=== PATIENT | female | born 1970 | race Caucasian/White ===

== ENCOUNTER 2017-07-29 17:06 | Observation (INO) | payer BC ==
[~2017-07-29 17:06] MED LIST: ISOVUE-370 76%-LOCM 1 ML ONE
[2017-07-29 18:22] LABS: Troponin I Less than 0.010 ng/mL (< 0.028)
[2017-07-29] MEDS ORDERED: Lidocaine 2% Viscous Solution 10 ML, Aluminum & Magnesium Hydroxide 30 ML SSW PRN (20:29)
--- NOTE | 2017-07-29 21:03 | ULT ---
LEFT LOWER EXTREMITY VENOUS DOPPLER 07/29/17 COMPARISON: None. HISTORY: Left lower extremity pain and edema/swelling, assess for DVT. TECHNIQUE: Multiplanar ventura scale sonographic imaging of the venous structures of the left lower extremity obtai mindy with color flow and spectral analysis. FINDINGS: The left common femoral vein, greater saphenous vein, profunda femoral vein, femoral vein, popliteal vein, and posterior tibial vein are patent. There is normal blood flow, augmentation, and compression within the deep venous systems of the left lower extremity. No evidence for deep venous thrombosis. IMPRESSION: No evidence for deep venous thrombosis of the left lower extremity. POS: [facility]
[2017-07-29 21:05] LABS: Troponin I Less than 0.010 ng/mL (< 0.028)
[2017-07-29] MEDS ORDERED: Dextrose 50% Abboject 50 ML SYRINGE SLOW IVP PRN (21:10)
[2017-07-29] MEDS ORDERED: Acetaminophen 325 MG TAB PO PRN (21:10)
[2017-07-29] MEDS ORDERED: Dextrose 5% in Water 1,000 ML IV PRN (21:10)
[2017-07-29] MEDS ORDERED: Nitroglycerin 0.4 MG TAB (25 Tab Bottle) PO PRN (21:10)
[2017-07-29] MEDS ORDERED: Ondansetron ODT 4 MG TAB PO PRN (21:10)
[2017-07-29] MEDS ORDERED: HumaLOG 300 UNITS/3 ML VIAL SC PRN ×2 (21:10)
[2017-07-29 21:41] LABS: Phosphorus 3.3 mg/dL (2.3-4.7)
[2017-07-29] MEDS: Docusate 100 MG CAP PO SCH (21:49)
[2017-07-29 21:55] VITALS: BMI 52.9
--- NOTE | 2017-07-29 23:10 | CT ---
CT ANGIOGRAM CHEST 07/29/17 COMPARISON: None. HISTORY: Rule out PE. TECHNIQUE: Serial axial CT imaging at 2.5 mm intervals from thoracic inlet through upper abdomen with IV contra st. Coronal and sagittal 3D reformatted imaging obtained. FINDINGS: There is a lobulated configuration of the thyroid gland with numerous underlying thyroid nodules, sean e of which demonstrate rim calcification, incompletely assessed on this exam. There is no axillary, o r hilar adenopathy. There is a mildly prominent precarinal node measuring in the 1.5 cm range, etiolo gy uncertain. Imaged upper abdomen appears grossly unremarkable. Secondary to timing of the contrast bolus, opacification of the distal pulmonary arterial vasculature is somewhat limited. The main pulmonary arterial trunk and bilateral main pulmonary arteries appear unremarkable. No evidence for a central pulmonary embolism is seen. Segmental and subsegmental pulmon ruthie arteries are somewhat suboptimally assessed. There is no pneumothorax, pleural fluid or fluid within the mediastinum or pericardium. Right upper l obe and right lower lobe granulomata noted as well as left lower lobe granulomata. No acute osseous a bnormality. Multilevel osteophyte formation of the thoracic spine noted. IMPRESSION: 1. No evidence for central pulmonary embolism. Please see above discussion. 2. Lobulated nodular thyroid gland. Recommend followup thyroid ultrasound. 3. Mildly enlarged nonspecific precarinal lymph node. POS: [facility]
[2017-07-30 04:11] LABS: Cardiac Risk 5.3 (Less than 4.5)
[2017-07-30] MEDS ORDERED: hydrALAZINE 20 MG/ML VIAL SLOW IVP PRN (04:44)
--- NOTE | 2017-07-30 06:54 | PDOC.FM ---
- Subjective Subjective: Patient doing well this AM. No significant overnight events. Patient denies any further chest pain or shortness of breath. Patient endorses TRAN this morning that she attributes to HANNAH that has yet to be diagnosed. Had discussion with patient regarding need for outpatient follow up on HANNAH and thyroid nodules. She was in understanding of the necessity for follow up with PCP. - Objective MAR Reviewed: Yes Vital Signs & Weight: Vital Signs (12 hours) Temp Pulse Resp BP Pulse Ox 07/30/17 03:46 97.8 F 63 18 136/62 97 07/29/17 22:37 98.6 F 68 18 07/29/17 21:10 96 07/29/17 20:42 98.6 F 68 18 131/60 96 Weight Weight 172.365 kg I&O: 07/28/17 07/29/17 07/30/17 06:59 06:59 06:59 Intake Total 240 Balance 240 EKG Reviewed by me: Yes Radiology Reviewed by me: Yes <Mee Perla - Last Filed: 07/30/17 07:49> - Objective Vital Signs & Weight: Vital Signs (12 hours) Temp Pulse Resp BP Pulse Ox 07/30/17 07:40 97.5 F L 76 20 148/67 H 97 07/30/17 07:35 97.8 F 63 18 07/30/17 03:46 97.8 F 63 18 136/62 97 Weight Weight 380 lb I&O: 07/29/17 07/30/17 07/31/17 06:59 06:59 06:59 Intake Total 240 Balance 240 <Duncan Park - Last Filed: 07/30/17 11:01> Phys Exam - Physical Examination Constitutional: NAD HEENT: moist MMs, sclera anicteric Neck: supple Respiratory: no wheezing, no rales, no rhonchi, clear to auscultation bilateral Cardiovascular: RRR systolic murmur Gastrointestinal: soft, non-tender, no distention, positive bowel sounds Musculoskeletal: pulses present LE edema, non-pitting Neurological: non-focal, moves all 4 limbs Psychiatric: A&O x 3 Skin: no rash, normal turgor, cap refill <2 seconds <Mee Perla - Last Filed: 07/30/17 07:49> Dx/Plan (1) Atypical chest pain Code(s): R07.89 - OTHER CHEST PAIN Status: Acute (2) Elevated d-dimer Code(s): R79.89 - OTHER SPECIFIED ABNORMAL FINDINGS OF BLOOD CHEMISTRY Status : Acute (3) HTN (hypertension) Code(s): I10 - ESSENTIAL (PRIMARY) HYPERTENSION Status: Chronic QualifierTitle: Hypertension type: essential hypertension Qualified Code( s): I10 - Essential (primary) hypertension (4) Type II diabetes mellitus Status: Chronic (5) Anxiety Code(s): F41.9 - ANXIETY DISORDER, UNSPECIFIED Status: Chronic - Plan Plan: Plan: Atypical chest pain: - Story consistent with anxiety vs. GERD - Heart score of 5.3 - Nuclear stress test to evaluate for myocardial ischemia - Phosphate and Magnesium normal - Electrolytes wnl - CE's negative x3 - TSH low-normal - Free T4 pending Elevated D-dimer: - CTA chest negative - Doppler u/s of LE negative HTN: - Continue home medications DM type II: - Held metformin and pioglitazone Thyroid nodular: - TSH low-normal - Free T4 pending - May need u/s as outpatient Dispo: D/c home today pending stress test <Mee Perla - Last Filed: 07/30/17 07:49> Attending Addendum - Attending Addendum I personally evaluated the patient and discussed the management with Dr. Perla I agree with the History, Examination, Assessment and Plan documented above with any addition or exceptions noted below. Patient will need a two day stress because of her weight. She is otherwise stable. She does need treatment for sleep apnea. <Duncan Park - Last Filed: 07/30/17 11:01>
--- NOTE | 2017-07-30 08:56 | HP-2 ---
CODE STATUS: FULL. PRIMARY CARE PHYSICIAN: Dr. Isauro Guo. ATTENDING: Dr. Park. RESIDENT: Luzmaria Gamez DO. HISTORIAN: Patient. CHIEF COMPLAINT: Back pain that radiates to the chest. HISTORY OF PRESENT ILLNESS: Patient is a 46-year-old female with past medical history of hypertension, diabetes. Past smoking history and family history of coronary artery disease who presents from [facility] for back pain that radiated to the center of her chest. The patient reports this has never happened in the past. Denies CP with exertion. Pain happened suddenly at rest and was relieved spontaneously. She reports associated bilateral arm tingling and an anxious feeling all over. She has seen Dr. Kumar in the past for a right bundle branch block that was 10 years ago. She had a stress test at that time that was normal along with an echo that was normal. She has not followed up since that time. She endorsed increased anxiety over the last couple days. The patient denies nausea, vomiting, diaphoresis at that time of this event. She was sitting at her desk at work when this happened. Denies exertional chest pain. In the ER, she was given 324 mg aspirin and an EKG was done which showed an old right bundle branch block. PAST MEDICAL HISTORY: 1. Type 2 diabetes. 2. Gastroesophageal reflux disease. 3. Hypertension. 4. Right bundle branch block, seen by Dr. Kumar. PAST SURGICAL HISTORY: Tonsillectomy. ALLERGIES: BENADRYL, LEVAQUIN, PENICILLIN, SULFA. MEDICATIONS: 1. Amlodipine 5 mg. 2. Fluticasone nasal spray 50 mcg. 3. Furosemide 20 mg p.r.n. 4. Lisinopril 40 mg daily. 5. Metformin 750 mg b.i.d. 6. Pioglitazone 50 mg. 7. Zinc. 8. Fish oil. 9. Octivite. 10. Flonase. FAMILY HISTORY: Father from [place]. Mom with more recent [place]. SOCIAL HISTORY: Prior tobacco use in the past. No alcohol or drug use. 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 REVIEW OF SYSTEMS: Twelve point review of systems performed and revealed the following: General: Denies fever, chills, does report recent weight loss that was purposeful. No change in appetite or sleep. Eyes: No vision changes or eye pain. ENT: Denies nasal congestion or rhinorrhea. Respiratory: Denies cough, congestion or shortness of breath. Cardiovascular: Reports the chest pain that is radiated from the back. Denies palpitations. Does report bilateral lower extremity edema. GI: Denies nausea, vomiting, diarrhea, constipation, abdominal pain. Genitourinary: Denies dysuria or polyuria. Skin : Denies rashes or lesions. Does report dry skin. Musculoskeletal: Denies pain. Neuro: Denies weakness or numbness. Does report the tingling sensation on her arms during this event. Psychiatric: Does report anxiety. PHYSICAL EXAMINATION: VITAL SIGNS: Blood pressure 160/70, pulse 66, respiratory rate 14, T-max 98.7, pulse ox 97% on room air. Current weight 172.37 kilograms. GENERAL: She is alert and oriented x4, no acute distress, obese. EYES: PERRLA, EOMI. NECK: Supple, possible thyromegaly, no lymphadenopathy. CARDIOVASCULAR: Regular rate and rhythm. No murmurs, gallops, or rubs. RESPIRATORY: Normal effort, no retractions, clear to auscultation bilaterally. SKIN: Warm and dry. ABDOMEN: Soft, nontender, bowel sounds present. Tender to palpation in epigastric area. EXTREMITIES: Trace bilateral lower extremity edema. No clubbing or cyanosis. MUSCULOSKELETAL: Structure within normal limits. NEUROLOGIC: No focal deficit. PSYCHIATRIC: The patient does appear very anxious. LABORATORY DATA: CBC: White blood cell count 8.1, hemoglobin 12.2, hematocrit 37.5, platelets 255. Chemistries: Sodium 140, potassium 4.4, chloride 105, CO2 of 23, BUN 14, creatinine 0.74, glucose 131, GFR 84, calcium 9.8, total protein 8.0, albumin 4.3, AST 27, ALT 31, alkaline phosphatase 78, total bilirubin 1.0, D-dimer 0.46. IMAGING: Chest x-ray showed borderline heart size, no acute findings. Vascular ultrasound was performed to the left lower extremity and was negative. CTA was done. No pulmonary embolus showed a nodular thyroid. ASSESSMENT AND PLAN: 1. Atypical chest pain, likely secondary to gastroesophageal reflux disease or anxiety. We will get fasting lipid panel, TSH, trend the troponins and a stress test in the morning. Heart score of 3. 2. Right bundle branch block, sees Dr. Kumar. Recommend echo outpatient. 3. Gastroesophageal reflux disease. We will give GI cocktail p.r.n. 4. Hypertension, controlled here. Hydralazine p.r.n. 5. Type 2 diabetes, a.c. and at bedtime, Accu-Cheks. Mild sliding scale insulin and home metformin and pioglitazone. 6. Morbid obesity. Educated on diet and exercise. 7. Prophylaxis. Lovenox. DISPOSITION AND LENGTH OF HOSPITAL STAY: 1-2 days. Symptomatic medications will be provided. History and physical exam as well as management was discussed with Dr. Park. GISELLE
[2017-07-30] MEDS ORDERED: Lisinopril 20 MG TAB PO SCH (09:00)
[2017-07-30] MEDS ORDERED: Fluticasone Propionate Nasal Spray 16 gm Bottle NASAL SCH (09:00)
[2017-07-30] MEDS ORDERED: Amlodipine 5 MG TAB PO SCH (09:00)
[2017-07-30] MEDS ORDERED: Aspirin 325 MG TAB PO SCH (09:00)
[2017-07-30] MEDS ORDERED: Enoxaparin Sodium 40 MG/0.4 ML SYRINGE SC SCH (09:00)
[2017-07-30] MEDS ORDERED: Regadenoson 0.4 MG/5 ML SYRINGE ONE (11:18)
[2017-07-30] MEDS: Docusate 100 MG CAP PO SCH (11:45)
[2017-07-30 11:52] VITALS: TEMP 97.9
--- NOTE | 2017-07-30 15:12 | NM ---
NUCLEAR MYOCARDIAL PERFUSION EVALUATION STRESS IMAGING EXAM PERFORMED: CLINICAL HISTORY: 46-year-old female with chest pain. Please reference stress EKG portion of the exam through the division of cardiology. FINDINGS: There is mild attenuation at the anterior wall and at the apex favoring breast attenuation and probab le physiologic apical thinning, respectively. Otherwise no significant perfusion defect to indicate i schemia or scar. Gated imaging reveals appropriate wall motion and contractility with calculated LVEF of 58%. IMPRESSION: 1. Probably normal myocardial perfusion evaluation. 2. No definitive evidence for ischemia or scar. 3. Normal left ventricular systolic function. POS: [facility]
[2017-07-30 17:33] VITALS: BP 154/71
[2017-07-30] MEDS ORDERED: Non-Formulary Item 1 EACH (Metformin Hcl [Metformin Hcl Er] 750 MG) PO SCH (21:00)
[2017-07-30] MEDS ORDERED: metFORMIN XR 500 MG TAB PO SCH (21:00)
--- NOTE | 2017-07-31 15:53 | DIS-2 ---
DATE OF ADMISSION: 07/29/2017 DATE OF DISCHARGE: 07/30/2017 RESIDENT: Mee Perla DO. ADMITTING ATTENDING: Duncan Park M.D. DISCHARGE ATTENDING: Duncan Park M.D. CONSULTATIONS: None. PROCEDURES: 1. Chest CT, no evidence of pulmonary embolism. There was noted to be a lobulated nodular thyroid gland and some mildly enlarged nonspecific. Her anal lymph nodes. 2. Chest x-ray borderline heart size, no acute findings. 3. Vascular ultrasound, no evidence of deep venous thrombosis of left lower extremity. 4. Echocardiogram showed ejection fraction estimated at 60% to 65%, normal diastolic function. 5. Stress test nuclear, no definitive evidence for ischemia or scar. Normal left ventricular systolic function. PRIMARY DIAGNOSIS: Atypical chest pain. SECONDARY DIAGNOSES: 1. Elevated D-dimer. 2. Hypertension. 3. Diabetes type 2 mellitus. 4. Anxiety. DISCHARGE MEDICATIONS: 1. Fluticasone propionate 2 sprays nasal daily. 2. Amlodipine 5 mg oral daily. 3. Furosemide 20 mg oral as needed. 4. Pioglitazone 50 mg oral daily. 5. Lisinopril 40 mg oral daily. 6. Metformin 750 mg oral twice daily. 7. Claritin-D 1 tab oral as needed. DISCONTINUED MEDICATIONS: None. HISTORY OF PRESENT ILLNESS AND HOSPITAL COURSE: This is a 46-year-old female with past medical history of hypertension and diabetes as well as the past smoking history and family history of coronary artery disease who presents from [facility] for back pain that radiated to the center of her chest. The patient reports that this had never happened before. She does report some increased anxiety over the last couple of days. The patient states that when this event happened she did note some bilateral arm tingling. She has seen Dr. Kumar in the past for right bundle branch block, approximately 10 years ago. She had a stress test and echocardiogram done at that time, which were normal. She has not followed up since. The patient denies nausea, vomiting or diaphoresis. She was sitting still at her desk when this all happen. She denies exertional chest pain. She was given 325 mg aspirin in the ED. An EKG was performed, which showed an old right bundle branch block. The patient was admitted to observation with telemetry for chest pain ruled out. Upon getting up to the floor, the patient's chest pain resolved completely without any intervention. A nuclear stress test was performed to rule out myocardial ischemia. It was found to be negative. Additionally, echo was performed, which showed ejection fraction of 60% to 65% without any diastolic dysfunction. Labs were done. Troponins were negative x3, cholesterol was 154, LDL 98, HDL 29. Free T4 1.32 and TSH of 0.5949. With the above, negative studies. The patient was determined stable for discharge home with close follow up with primary care physician. There were some thyroid nodules noted on CT scan. It was advised that the patient follow closely with her primary care provider to have this evaluated. Further evaluation would include a thyroid ultrasound, TSH and free T4 were performed. The values are as indicated above. Additionally, the patient needs to be evaluated for sleep apnea as an outpatient. This was all discussed with the patient at length and she was in understanding of the necessity for close followup. DISPOSITION: Stable. DISCHARGE INSTRUCTIONS: 1. Location: Home. 2. Activity: No restrictions. 3. Diet: Heart healthy and diabetic. 4. Followup: The patient is to follow up with her primary care physician in [place], [place]. She states that her current primary care provider just left. However, there are other physicians within the same office as she can establish with. She states that she will call and make an appointment within the next 7 days for followup. GISELLE
--- NOTE | 2017-09-22 20:44 | STRESS ---
Acquisition Time: 2017-07-30 09:24:40 Total Exercise Time: 00:01:00 Test Indications: CHEST PAIN Medications: Protocol: LEXISCAN Max HR: 091 BPM 52% of Pred: 172 BPM Max BP: 136/060 mmHG Max Work Load: 1.0 METS RESTING ECG: NORMAL SINUS RHYTHM AT 73 BPM WITH COMPLETE RIGHT BUNDLE BRANCH BLOCK; BIFASCICULAR BLOCK SYMPTOMS: NONE NORMAL BP RESPONSE ECTOPY: NONE ECG STRESS: NO SIGNIFICANT CHANGES INTERPRETATION: INDETERMINATE ECG/AWAIT NUCLEAR IMAGES FOR DEFINITIVE DIAGNOSIS Confirmed by DEVORAH POON M.D. ([id number] on 09/22/2017 8:43:24 PM Referred By: MD David HOOPER Confirmed By:DEVORAH POON M.D.
--- NOTE | 2017-09-24 16:52 | EKG ---
Test Reason : CP RO TRFX Blood Pressure : / mmHG Vent. Rate : 071 BPM Atrial Rate : 071 BPM P-R Int : 146 ms QRS Dur : 142 ms QT Int : 456 ms P-R-T Axes : -07 -50 -01 degrees QTc Int : 495 ms Normal sinus rhythm Right bundle branch block Left anterior fascicular block Bifascicular block Abnormal ECG No ST elevation/NM Confirmed by JAS SAHU ([id number]), movie editor JENNIE HANCOCK ([id number]) on 09/24/2017 4:51:39 PM Referred By: Confirmed By:JAS SAHU
== END 2017-07-30 18:21 | disposition home or self-care (01) ==
LOC: ERS 17:06 → 2SW 19:14
PROVIDERS: ADMIT Internal Medicine; ATTEND Internal Medicine
DX: R07.89 Other chest pain (principal); I10 Essential (primary) hypertension; R79.1 Abnormal coagulation profile; E11.9 Type 2 diabetes mellitus without complications; F41.9 Anxiety disorder, unspecified; M54.9 Dorsalgia, unspecified; K21.9 Gastro-esophageal reflux disease without esophagitis; E04.2 Nontoxic multinodular goiter; I45.10 Unspecified right bundle-branch block; E66.01 Morbid (severe) obesity due to excess calories; Z68.43 Body mass index [BMI] 50.0-59.9, adult; Z79.84 Long term (current) use of oral hypoglycemic drugs; Z79.51 Long term (current) use of inhaled steroids; Z79.899 Other long term (current) drug therapy; Z71.3 Dietary counseling and surveillance; Z88.1 Allergy status to other antibiotic agents; Z88.0 Allergy status to penicillin; Z88.2 Allergy status to sulfonamides; Z88.8 Allergy status to other drugs, medicaments and biological substances; Z90.89 Acquired absence of other organs; Z87.891 Personal history of nicotine dependence; Z82.49 Family history of ischemic heart disease and other diseases of the circulatory system
CPT/HCPCS: 36415; 36416; 71275; 78452; 80061; 83735; 84100; 84439; 84443; 85379; 93005; 93017; 93306; 94760; A9500; G0378; J1650; J2785

== ENCOUNTER 2021-03-27 | Outpatient (CLI) | payer OTHER | END 2021-03-27 14:23 | disposition home or self-care (01) | DX: Z12.31 Encounter for screening mammogram for malignant neoplasm of breast (principal); E04.2 Nontoxic multinodular goiter; Z80.3 Family history of malignant neoplasm of breast | CPT/HCPCS: 76536; 77063; 77067 ==

== ENCOUNTER 2021-06-25 10:08 | Emergency (ER) | payer OTHER ==
[2021-06-25] MEDS ORDERED: Ketorolac Tromethamine 30 MG/ML VIAL ONE (11:37)
== END 2021-06-25 12:41 | disposition home or self-care (01) ==
LOC: ERS 10:08
DX: M25.561 Pain in right knee (principal); E11.9 Type 2 diabetes mellitus without complications; I10 Essential (primary) hypertension; K21.9 Gastro-esophageal reflux disease without esophagitis; Z87.891 Personal history of nicotine dependence; Z79.899 Other long term (current) drug therapy; X50.1XXA Overexertion from prolonged static or awkward postures, initial encounter
CPT/HCPCS: 96372; J1885

== ENCOUNTER 2022-05-27 09:13 | Outpatient (CLI) | payer OTHER | END 2022-05-27 09:14 | disposition home or self-care (01) | LOC: SCSMRI 09:13 | PROVIDERS: ATTEND Nurse Practitioner Family | DX: M23.92 Unspecified internal derangement of left knee (principal); S83.242A Other tear of medial meniscus, current injury, left knee, initial encounter ==

== ENCOUNTER 2022-09-07 09:15 | Outpatient (CLI) | payer OTHER ==
[2022-09-07] MEDS ORDERED: Iopamidol-370 76% 500 ML 1 ML ONE (12:57)
== END 2022-09-07 09:16 | disposition home or self-care (01) ==
LOC: BICCT 09:15
PROVIDERS: ATTEND Nurse Practitioner Family
DX: Z12.31 Encounter for screening mammogram for malignant neoplasm of breast (principal); R92.1 Mammographic calcification found on diagnostic imaging of breast; E05.90 Thyrotoxicosis, unspecified without thyrotoxic crisis or storm; R17 Unspecified jaundice; R16.2 Hepatomegaly with splenomegaly, not elsewhere classified; E04.2 Nontoxic multinodular goiter; N20.0 Calculus of kidney; Z80.3 Family history of malignant neoplasm of breast
CPT/HCPCS: 74160; 76536; 77063; 77067; 82565; Q9967

== ENCOUNTER 2022-11-04 08:15 | Outpatient (CLI) | payer OTHER | END 2022-11-04 08:16 | disposition home or self-care (01) | LOC: NM 08:15 | PROVIDERS: ATTEND Internal Medicine Endocrinology, Diabetes & Metabolism | DX: E05.90 Thyrotoxicosis, unspecified without thyrotoxic crisis or storm (principal); E04.9 Nontoxic goiter, unspecified | CPT/HCPCS: 78014; A9516 ==